=== PATIENT | male | born 1960 | race Caucasian/White ===

== ENCOUNTER 2023-05-26 10:21 | Outpatient (CLI) | payer MEDICARE, BC ==
[~2023-05-26] VITALS: Ht 175.3 cm; Wt 101.2 kg
[~2023-05-26 10:21] MED LIST: ATEN-169 PO; LISI1TAB49 PO; SIMV10TA98 PO
[2023-05-26] MEDS ORDERED: albuterol 2.5 MG/3 ML nebule NEB ONE (11:00)
[2023-05-26 11:15] VITALS: PULSE 71; RESP 20; O2SAT 97
== END 2023-05-26 23:59 | disposition home or self-care (01) ==
LOC: RT 10:21
PROVIDERS: ATTEND Internal Medicine
DX: R94.31 Abnormal electrocardiogram [ECG] [EKG] (principal); R06.02 Shortness of breath
CPT/HCPCS: 85018; 94060; 94727; 94729; 94760